=== PATIENT | female | born 1965 | race Caucasian/White ===

== ENCOUNTER 2017-08-20 08:11 | Day surgery (SDC) | payer OTHER ==
[~2017-08-20] VITALS: Ht 165.1 cm; Wt 99.3 kg
[~2017-08-20 08:11] MED LIST: ADVA115A INH; VENTAER IN
[2017-08-20] MEDS ORDERED: NS 1,000 ML IV SCH (08:30)
[2017-08-20] MEDS ORDERED: LIDOCAINE 2% INJ 100 MG/5 ML SDV (FOR ANES.) As Ordered ONE (09:19)
[2017-08-20] MEDS ORDERED: PROPOFOL 200 MG/20 ML VIAL As Ordered ONE ×2 (09:19→09:31)
--- NOTE | 2017-08-20 09:35 | ROOR ---
Patient Name: Alexandra Dillon Procedure Date: 08/20/2017 9:16 AM Date of : 1965 Age: 51 Room: [facility] Gender: Female Note Status: Finalized Procedure: Colonoscopy Indications: Screening for colorectal malignant neoplasm Providers: Sami Cash Jr, MD Referring MD: Trev Lucero MD Requesting Provider: Medicines: Propofol per Anesthesia Complications: No immediate complications. Procedure: Pre-Anesthesia Assessment: - Prior to the procedure, a History and Physical was performed, and patient medications and allergies were reviewed. The patient is competent. The risks and benefits of the procedure and the sedation options and risks were discussed with the patient. All questions were answered and informed consent was obtained. Patient identification and proposed procedure were verified by the physician and the nurse in the pre-procedure area and in the procedure room. Mental Status Examination: alert and oriented. Airway Examination: normal oropharyngeal airway and neck mobility. Respiratory Examination: clear to auscultation. CV Examination: normal. ASA Grade Assessment: II - A patient with mild systemic disease. After reviewing the risks and benefits, the patient was deemed in satisfactory condition to undergo the procedure. The anesthesia plan was to use moderate sedation / analgesia (conscious sedation). Immediately prior to administration of medications, the patient was re-assessed for adequacy to receive sedatives. The heart rate, respiratory rate, oxygen saturations, blood pressure, adequacy of pulmonary ventilation, and response to care were monitored throughout the procedure. The physical status of the patient was re-assessed after the procedure. The Colonoscope was introduced through the anus and advanced to the cecum, identified by appendiceal orifice and ileocecal valve. The colonoscopy was performed without difficulty. The patient tolerated the procedure well. The quality of the bowel preparation was adequate and good. Findings: The rectum, recto-sigmoid colon, descending colon, transverse colon, ascending colon, cecum, appendiceal orifice and ileocecal valve appeared normal. Multiple diverticula were found in the sigmoid colon. Impression: - The rectum, recto-sigmoid colon, descending colon, transverse colon, ascending colon, cecum, appendiceal orifice and ileocecal valve are normal. - Diverticulosis in the sigmoid colon. - No specimens collected. Recommendation: - Discharge patient to home (ambulatory). - Repeat colonoscopy in 10 years for screening purposes. Sami Cash MD Sami Cash Jr, MD 08/20/2017 9:34:40 AM This report has been signed electronically. Number of Addenda: 0 Note Initiated On: 08/20/2017 9:16 AM Estimated Blood Loss: Estimated blood loss: none.
[2017-08-20 09:55] VITALS: BP 162/88
== END 2017-08-20 10:03 | disposition home or self-care (01) ==
LOC: M OPP 08:11
PROVIDERS: ATTEND Surgery
DX: Z12.11 Encounter for screening for malignant neoplasm of colon (principal); K57.30 Diverticulosis of large intestine without perforation or abscess without bleeding; J45.909 Unspecified asthma, uncomplicated; R06.02 Shortness of breath; Z78.0 Asymptomatic menopausal state; R06.83 Snoring; E66.9 Obesity, unspecified; Z79.899 Other long term (current) drug therapy; Z80.0 Family history of malignant neoplasm of digestive organs; Z80.3 Family history of malignant neoplasm of breast

== ENCOUNTER → 2018-02-23 | Outpatient (CLI) | payer OTHER | LOC: M WUC 09:44 | DX: S83.411A Sprain of medial collateral ligament of right knee, initial encounter (principal); Y92.89 Other specified places as the place of occurrence of the external cause; Y93.9 Activity, unspecified; Y99.9 Unspecified external cause status; X58.XXXA Exposure to other specified factors, initial encounter | CPT/HCPCS: 73564 ==

== ENCOUNTER → 2018-04-13 | Outpatient (CLI) | payer OTHER | LOC: M SMT 14:57 | DX: J45.40 Moderate persistent asthma, uncomplicated (principal) | CPT/HCPCS: 71046 ==

== ENCOUNTER → 2018-04-30 | Outpatient (CLI) | payer OTHER | LOC: M SLEEP HO 10:53 | DX: G47.30 Sleep apnea, unspecified (principal) | CPT/HCPCS: G0399 ==

== ENCOUNTER → 2018-12-31 | Outpatient (REF) | payer OTHER | LOC: M LAB REF 13:20 | PROVIDERS: ATTEND Physician Assistant | DX: R30.0 Dysuria (principal) ==

== ENCOUNTER → 2019-03-31 | Outpatient (CLI) | payer OTHER ==
--- NOTE | 2019-04-01 08:48 | REP ---
Clinical: Left lower extremity pain and swelling . Technique: Schmitz scale and color Doppler evaluation using linear high frequency transducer. Findings: Ultrasound examination of the left lower extremity deep venous structures from the common femoral vein to the popliteal vein demonstrates normal compressibility flow and wave patterns in response to respiration and augmentation. There is no evidence for deep venous thrombosis. Impression: No evidence for deep venous thrombosis. Electronically Signed by Srinivas Bernal MD 03/31/2019 03:20 P
== END ==
LOC: M RAD 14:38
PROVIDERS: ATTEND Physician Assistant
DX: M25.562 Pain in left knee (principal)

== ENCOUNTER → 2020-01-27 | Outpatient (CLI) | payer OTHER ==
--- NOTE | 2020-01-28 07:55 | REP ---
ULTRASOUND RIGHT BREAST: Real-time sonographic evaluation of the right breast performed with special attention made to the upper outer quadrant where a suspected venous anomaly or nodule is seen on the prior MRI of the breast 12/21/2019 at [facility]. In the region of 9 to 10-o'clock position, there is an oval hypoechoic nodule measuring 8 x 5 x 8 mm. This corresponds to the abnormality seen on the MRI. Adjacent blood vessels are seen. This appears to represent a solid nodule and should be biopsied. IMPRESSION: ACR 4 suspicious. At the site of the enhancing nodular area in the upper outer quadrant of the right breast, there is a solid nodule by ultrasound which is hypoechoic and measures 8 mm in maximum diameter. Recommend ultrasound guided biopsy. Electronically Signed by Shawn Schmitz MD 01/28/2020 09:48 A
== END ==
LOC: M RAD 13:58
PROVIDERS: ATTEND Family Medicine
DX: N63.10 Unspecified lump in the right breast, unspecified quadrant (principal)

== ENCOUNTER → 2020-03-01 | Outpatient (CLI) | payer OTHER ==
[2020-03-01 12:29] VITALS: BP 144/74
--- NOTE | 2020-03-01 12:31 | REP ---
DIGITAL DIAGNOSTIC UNILATERAL RIGHT BREAST MAMMOGRAPHY: Two views. HISTORY: Marker clip placement views. The patient status post ultrasound-guided needle biopsy procedure and clip placement. Comparison mammography April 12, 2019. FINDINGS: The needle biopsy marker clip is seen in the right breast upper outer quadrant at the site where prior mammography showed a small nodular opacity. No microcalcification is seen. No evidence hematoma. IMPRESSION: Marker clip in place upper outer quadrant right breast. This mammogram was interpreted with the aid of an FDA-approved computer-aided detection system. This patient's estimated Tyrer-Cuzick lifetime risk assessment for breast cancer is 28.5 %. Enhanced screening in the form of annual bilateral breast MRI scanning is warranted. Bilateral breast MRI scanning is recommended annually.
--- NOTE | 2020-03-02 09:40 | REP ---
ULTRASOUND-GUIDED RIGHT BREAST BIOPSY: This procedure was performed by STARR Perez, under the direct supervision of Dr. Florez. The risks and benefits of the procedure were explained to the patient and informed consent was obtained. Directly prior to the start of the procedure, a formal time-out was completed. The right breast mass was localized using ultrasound guidance. The skin was prepped and draped in a sterile fashion. Approximately 20 mL of buffered lidocaine was used as a local anesthetic. Using ultrasound guidance a 14-gauge BARD MARQUEE biopsy system was inserted and five core biopsy specimens were obtained. A marker clip was placed at the biopsy site. The patient tolerated the procedure well and there were no immediate complications. After the appropriate monitored convalescence the patient was discharged from the department.
== END ==
LOC: M WHCPRO 08:42
PROVIDERS: ATTEND Surgery
DX: N60.11 Diffuse cystic mastopathy of right breast (principal)

== ENCOUNTER → 2020-04-16 | Outpatient (CLI) | payer OTHER ==
--- NOTE | 2020-04-16 09:27 | REPMRS ---
Patient History The patient states she had a clinical breast exam in February 2020. Patient is postmenopausal and is nulliparous. Family history of breast cancer at age 60 in mother, breast cancer at age 50 in sister. US Guided Breast Biopsy. of the right breast, March 01, 2020. Took hormonal contraceptives for 25 years. 3D TOMOSYNTHESIS WAS PERFORMED. VOLPARA DENSITY B. Digital Woman Screen Mammo: April 16, 2020 - Exam #: [id number] Bilateral CC and MLO view(s) were taken. Technologist: Pura Lopez, Technologist Prior study comparison: March 01, 2020, right breast diagnostic unilateral mammo performed at [facility]. November 03, 2013, bilateral digital mammo screening bilat, performed at [facility]. FINDINGS: There are scattered fibroglandular densities. There has been no change in the appearance of the mammogram from the prior studies. There is a mild amount of residual fibroglandular tissue which is fairly symmetric. There is no interval development of dominant mass, architectural distortion, or clustered microcalcification suggestive of malignancy. Assessment: BI-RADS/ACR category 1 mammogram. Negative Mammogram. Recommendation Routine screening mammogram in 1 year (for women over age 40). This mammogram was interpreted with the aid of an FDA-approved computer-aided dectection system. THE LIFETIME RISK OF BREAST CANCER IS 29.9%, THEREFORE SUPPLEMENTAL SCREENING MRI OF THE BREASTS IS RECOMMENDED IN 6 MONTHS. Electronically Signed By: Shawn Schmitz MD 04/16/20 0926
== END ==
LOC: M WHC 08:06
PROVIDERS: ATTEND Surgery
DX: Z91.89 Other specified personal risk factors, not elsewhere classified (principal); Z80.3 Family history of malignant neoplasm of breast

== ENCOUNTER → 2020-09-06 | Outpatient (CLI) | payer OTHER ==
--- NOTE | 2020-09-06 16:01 | REP ---
INDICATION: D23.9/Z91.89/N60.99 APOCRINE ADENOMA/HIGH RISK/DUCT HYPERPLA. COMPARISON: Comparison sonography is from January 27, 2020. Patient status post needle biopsy for 8 mm nodule in the right breast at 9 o'clock. Comparison mammography April 16, 2020.. TECHNIQUE: Focused right breast sonogram. FINDINGS: Targeted right breast sonography demonstrates a needle biopsy marker clip surrounded by hypoechoic tissue and or HydroMARK hydrophilic material. The lesion does not appear to have progressed and apart from the HydroMARK material, appears to have decreased in size. The clip is immediately adjacent. No other significant finding. IMPRESSION: Regional target appears smaller. It is immediately adjacent to the HydroMARK clip marker device. BI-RADS category 2 benign findings. <Electronically signed by Kingsley Florez > 09/06/20 [id number]
== END ==
LOC: M WHC 10:51
PROVIDERS: ATTEND Surgery
DX: D23.9 Other benign neoplasm of skin, unspecified (principal); N60.99 Unspecified benign mammary dysplasia of unspecified breast; Z91.89 Other specified personal risk factors, not elsewhere classified

== ENCOUNTER → 2020-12-31 | Outpatient (CLI) | payer OTHER ==
[~2020-12-31] MED LIST changes: +PROHANCE 279.3MG/ML 15ML VIAL As Ordered ONE; +PROHANCE 279.3MG/ML 5ML VIAL As Ordered ONE
--- NOTE | 2020-12-31 14:25 | REP ---
INDICATION: HIGH RISK BREAST CA FAM H/O. COMPARISON: Comparison breast MRI study is from December 21, 2019. Comparison sonography right breast September 06, 2020 and January 27 2020. Patient is status post benign needle biopsy right breast. TECHNIQUE: Three Livia MRI imaging was performed with a dedicated breast coil. Axial, coronal, and sagittal T1 and T2 weighted scans were obtained with and without fat saturation in the usual fashion. The study includes dynamically acquired post gadolinium-enhanced imaging with image subtraction. Maximum intensity projection and multi planar reformation imaging is included as well. This study is interpreted with the aid of Black HouseD, an FDA approved computer aided detection (CAD) software program, on a dedicated breast MRI workstation. The gadolinium enhancement dose is 20 mL of intravenous ProHance. FINDINGS: There is a mild amount of fibroglandular tissue bilaterally corresponding with the mammographic pattern. There is minimal background parenchymal enhancement. There is no evidence of axillary lymphadenopathy or significant breast cystic change. High-resolution pre and post-contrast T1 and T2 weighted scans show no suspicious morphologic abnormality in either breast. Dynamically acquired sequential postcontrast images show no suspicious area of enhancement and washout kinetics in either breast to suggest malignancy. Subtraction images show no additional abnormality. The previously noted enhancing nodule in the right mid breast again seen with a needle biopsy marker clip adjacent. This is unchanged otherwise. There is benign pattern contrast enhancement in the nodule. No new nodule or breast mass is observed. IMPRESSION: BI-RADS category 2 benign bilateral breast MRI findings. Repeat screening bilateral breast MRI study recommended in 1 year. <Electronically signed by Kingsley Florez > 12/31/20 [id number]
== END ==
LOC: M RAD 10:37
PROVIDERS: ATTEND Surgery
DX: Z15.01 Genetic susceptibility to malignant neoplasm of breast (principal); Z80.3 Family history of malignant neoplasm of breast
CPT/HCPCS: A9576; C8908

== ENCOUNTER → 2021-01-16 | Outpatient (REF) | payer OTHER, MEDICAID ==
[~2021-01-16] MED LIST changes: -PROHANCE 279.3MG/ML 15ML VIAL As Ordered ONE; -PROHANCE 279.3MG/ML 5ML VIAL As Ordered ONE
== END ==
LOC: M SFHCWAGY 15:02
PROVIDERS: ATTEND Advanced Practice Midwife
DX: Z12.4 Encounter for screening for malignant neoplasm of cervix (principal)

== ENCOUNTER → 2021-04-22 | Outpatient (CLI) | payer OTHER ==
--- NOTE | 2021-04-22 09:33 | REPMRS ---
Patient History The patient states she had a clinical breast exam in November 2020. Family history of breast cancer at age 60 in mother, breast cancer at age 50 in sister. Benign US guided breast biopsy. of the right breast, March 01, 2020. Took hormonal contraceptives for 25 years. No breast compliants today, pt stated that she has occasional tenderness at and around the site of her right breast biopsy. Moderna vaccine 01/29/21 left arm. 02/26/21 left arm. 15-20 lb intentional weight loss. Patient has signed MRS History Sheet. Digital Woman Screen Mammo: April 22, 2021 - Exam #: [id number] Bilateral CC and MLO view(s) were taken. Technologist: RT Kristy Prior study comparison: April 16, 2020, bilateral digital woman screen mammo performed at [facility] [place]. March 01, 2020, right breast diagnostic unilateral mammo performed at [facility]. April 12, 2019, bilateral digital mammo screening bilat, performed at [facility]. May 20, 2017, bilateral digital woman screen mammo, performed at [facility]. FINDINGS: There are scattered fibroglandular densities. The Volpara volumetric breast density category is:B. There is a needle biopsy marker clip noted in the right breast. There has been no change in the appearance of the mammogram from the prior studies. There is a mild amount of scattered fibroglandular density which is fairly symmetric. There is no interval development of dominant mass, architectural distortion, or grouped microcalcification suggestive of malignancy. 3-D tomosynthesis shows no additional findings. Assessment: BI-RADS/ACR category 2 mammogram. Benign Findings. Recommendation Breast MRI of both breasts in 6 months. Routine screening mammogram of both breasts in 1 year (for women over age 40). This patient's [facility] Lifetime Breast Cancer Risk is estimated at 29.3 %. Patients whose estimated lifetime breast cancer risk assessment is greater than 20% merit annual screening breast MRI scanning in addition to annual mammography. This mammogram was interpreted with the aid of an FDA-approved computer-aided dectection system. Electronically Signed By: Kingsley Florez MD 04/22/21 0932
== END ==
LOC: M WHC 07:57
PROVIDERS: ATTEND Surgery
DX: Z12.31 Encounter for screening mammogram for malignant neoplasm of breast (principal)

== ENCOUNTER → 2022-01-02 | Outpatient (CLI) | payer OTHER ==
[~2022-01-02] MED LIST changes: +PROHANCE 279.3MG/ML 15ML VIAL As Ordered ONE; +PROHANCE 279.3MG/ML 5ML VIAL As Ordered ONE
== END ==
LOC: M RAD 10:09
PROVIDERS: ATTEND Nurse Practitioner Women's Health
DX: N60.99 Unspecified benign mammary dysplasia of unspecified breast (principal); Z91.89 Other specified personal risk factors, not elsewhere classified; Z80.3 Family history of malignant neoplasm of breast
CPT/HCPCS: 77049; A9576

== ENCOUNTER 2022-03-09 10:00 | Emergency (ER) | payer MEDICAID, OTHER ==
[~2022-03-09] VITALS: Ht 165.1 cm; Wt 108.4 kg
[~2022-03-09 10:00] MED LIST changes: -PROHANCE 279.3MG/ML 15ML VIAL As Ordered ONE; -PROHANCE 279.3MG/ML 5ML VIAL As Ordered ONE
[2022-03-09] MEDS ORDERED: BENZOCAINE 20% GEL 9GM TUBE (ANBESOL MAX STRENGTH) TOP ONE (10:20)
[2022-03-09] MEDS ORDERED: ACETAMINOPHEN 500 MG TAB PO ONE (10:20)
[2022-03-09] MEDS ORDERED: KETOROLAC 30 MG/ML 1ML VIAL IM ONE (10:20)
[2022-03-09] MEDS ORDERED: NORCO 5/325MG TABLET (HOME DOSE PACK) PO ONE (11:15)
[2022-03-09 11:22] VITALS: BP 171/98
== END 2022-03-09 11:24 | disposition home or self-care (01) ==
LOC: M ED 10:00
DX: K08.89 Other specified disorders of teeth and supporting structures (principal); J45.909 Unspecified asthma, uncomplicated; Z79.51 Long term (current) use of inhaled steroids
CPT/HCPCS: 96372; 99283; J1885

== ENCOUNTER → 2022-09-03 | Outpatient (CLI) | payer OTHER, MEDICAID | LOC: M PLAIMG 08:58 | PROVIDERS: ATTEND Internal Medicine Pulmonary Disease | DX: J45.40 Moderate persistent asthma, uncomplicated (principal) ==

== ENCOUNTER → 2023-01-09 | Outpatient (CLI) | payer OTHER ==
[~2023-01-09] MED LIST changes: +PROHANCE 279.3MG/ML 15ML VIAL ONE; +PROHANCE 279.3MG/ML 5ML VIAL ONE
== END ==
LOC: M PLAIMG 09:33
PROVIDERS: ATTEND Nurse Practitioner Women's Health
DX: Z91.89 Other specified personal risk factors, not elsewhere classified (principal); Z80.3 Family history of malignant neoplasm of breast; Z12.39 Encounter for other screening for malignant neoplasm of breast
CPT/HCPCS: 77049; A9576

== ENCOUNTER → 2023-02-25 | Outpatient (CLI) | payer OTHER ==
[~2023-02-25] MED LIST changes: +ISOVUE-370 76% 100ML VIAL As Ordered ONE; -PROHANCE 279.3MG/ML 15ML VIAL ONE; -PROHANCE 279.3MG/ML 5ML VIAL ONE
== END ==
LOC: M RAD 14:40
PROVIDERS: ATTEND Otolaryngology
DX: R49.0 Dysphonia (principal)
CPT/HCPCS: 70491; Q9967

== ENCOUNTER → 2023-03-27 | Outpatient (CLI) | payer OTHER ==
[~2023-03-27] MED LIST changes: -ISOVUE-370 76% 100ML VIAL As Ordered ONE
== END ==
LOC: M EKG 14:43
PROVIDERS: ATTEND Anesthesiology
DX: Z01.810 Encounter for preprocedural cardiovascular examination (principal)

== ENCOUNTER 2023-04-09 11:41 | Day surgery (SDC) | payer OTHER ==
[~2023-04-09] VITALS: Ht 165.1 cm; Wt 103.4 kg
[2023-04-09] MEDS ORDERED: LR 1,000 ML IV SCH ×2 (12:50→15:20)
[2023-04-09] MEDS ORDERED: METHYLENE BLUE 0.5% (5MG/ML) 10 ML AMP (PROVAYBLUE) As Ordered ONE (14:13)
[2023-04-09] MEDS ORDERED: LIDOCAINE W/EPINEPHRINE 1% 20ML VIAL As Ordered ONE (14:13)
[2023-04-09] MEDS ORDERED: OXYMETAZOLINE 0.05% NASAL SPRAY (AFRIN) As Ordered ONE (14:14)
[2023-04-09] MEDS ORDERED: fentaNYL 100 MCG/2 ML INJECTION As Ordered ONE (14:16)
[2023-04-09] MEDS ORDERED: propofoL 200 MG/20 ML VIAL As Ordered ONE ×2 (14:16→14:55)
[2023-04-09] MEDS ORDERED: MIDAZOLAM INJ 2MG/2ML VIAL As Ordered ONE (14:16)
[2023-04-09] MEDS ORDERED: ONDANSETRON 4MG 2ML VIAL As Ordered ONE (14:17)
[2023-04-09] MEDS ORDERED: ROCURONIUM BROMIDE 50MG/5ML VIAL As Ordered ONE ×2 (14:17→14:55)
[2023-04-09] MEDS ORDERED: LIDOCAINE 2% 100MG/5ML SDV (FOR ANES.) As Ordered ONE (14:19)
[2023-04-09] MEDS ORDERED: SUGAMMADEX SODIUM 500 MG/5 ML VIAL (BRIDION) As Ordered ONE (14:19)
[2023-04-09] MEDS ORDERED: ACETAMINOPHEN 1000MG 100ML IV BAG As Ordered ONE (14:20)
[2023-04-09] MEDS ORDERED: HYDROmorphone HCL 2MG/ML 1ML VIAL As Ordered ONE (14:56)
[2023-04-09] MEDS ORDERED: GLYCOPYRROLATE INJ 0.2 MG/ML 2 ML VIAL As Ordered ONE (14:57)
[2023-04-09] MEDS ORDERED: fentaNYL 100 MCG/2 ML INJECTION IV PRN (15:20)
[2023-04-09] MEDS ORDERED: oxyCODONE 5MG TAB PO PRN (15:20)
[2023-04-09] MEDS ORDERED: ONDANSETRON 4MG 2ML VIAL IV PRN (15:20)
[2023-04-09] MEDS ORDERED: HYDROMORPHONE HCL 0.5 MG/ 0.5 ML SYRINGE IV PRN (15:20)
[2023-04-09 17:00] VITALS: BP 131/79; TEMP 97.5; O2SAT 99
== END 2023-04-09 18:11 | disposition home or self-care (01) ==
LOC: M SDC 11:41
PROVIDERS: ATTEND Otolaryngology
DX: K13.21 Leukoplakia of oral mucosa, including tongue (principal); J45.909 Unspecified asthma, uncomplicated; G47.33 Obstructive sleep apnea (adult) (pediatric); Z79.51 Long term (current) use of inhaled steroids
CPT/HCPCS: 31536; 88305; J0131; J1100; J1170; J2250; J2405; J3010; Q9968

== ENCOUNTER → 2023-07-08 | Outpatient (CLI) | payer OTHER | LOC: M WHC 08:40 | PROVIDERS: ATTEND Nurse Practitioner Women's Health | DX: Z12.31 Encounter for screening mammogram for malignant neoplasm of breast (principal); Z91.89 Other specified personal risk factors, not elsewhere classified; Z80.3 Family history of malignant neoplasm of breast ==

== ENCOUNTER → 2024-01-21 | Outpatient (CLI) | payer OTHER | LOC: M PLAIMG 09:05 | PROVIDERS: ATTEND Internal Medicine Pulmonary Disease | DX: J45.40 Moderate persistent asthma, uncomplicated (principal) ==

== ENCOUNTER 2024-01-31 10:55 | Emergency (ER) | payer OTHER ==
[~2024-01-31] VITALS: Ht 165.1 cm; Wt 104.1 kg
[2024-01-31] MEDS ORDERED: BENZ150C5 PO (12:57)
[2024-01-31 13:04] VITALS: BP 146/78; TEMP 99.2; O2SAT 96
== END 2024-01-31 13:05 | disposition home or self-care (01) ==
LOC: M ED 10:55
DX: J06.9 Acute upper respiratory infection, unspecified (principal); R05.3 Chronic cough; J45.909 Unspecified asthma, uncomplicated; G47.33 Obstructive sleep apnea (adult) (pediatric); F10.10 Alcohol abuse, uncomplicated; Z79.52 Long term (current) use of systemic steroids; Z79.811 Long term (current) use of aromatase inhibitors; Z79.899 Other long term (current) drug therapy

== ENCOUNTER → 2024-08-22 | Outpatient (CLI) | payer OTHER ==
[~2024-08-22] MED LIST changes: +BENZ150C5 PO
== END ==
LOC: M WHC 07:39
PROVIDERS: ATTEND Family Medicine
DX: Z12.31 Encounter for screening mammogram for malignant neoplasm of breast (principal); Z80.3 Family history of malignant neoplasm of breast

== ENCOUNTER → 2025-06-13 | Outpatient (CLI) | payer OTHER ==
[~2025-06-13] MED LIST changes: +E-Z-GAS II EFFERVESCENT PACKET (SODIUM BICARB./CITRIC ACID/SIMETHICONE) As Ordered ONE; +E-Z-HD 98% w/w 340 GM SUSP BTL As Ordered ONE; +E-Z-PAQUE 96% w/w SUSP 176 GM BTL As Ordered ONE
== END ==
LOC: M RAD 10:12
PROVIDERS: ATTEND Family Medicine
DX: K21.9 Gastro-esophageal reflux disease without esophagitis (principal); R05.9 Cough, unspecified; K44.9 Diaphragmatic hernia without obstruction or gangrene

== ENCOUNTER 2025-08-14 09:16 | Emergency (ER) | payer OTHER ==
[~2025-08-14] VITALS: Ht 165.1 cm; Wt 95.5 kg
[~2025-08-14 09:16] MED LIST changes: -E-Z-GAS II EFFERVESCENT PACKET (SODIUM BICARB./CITRIC ACID/SIMETHICONE) As Ordered ONE; -E-Z-HD 98% w/w 340 GM SUSP BTL As Ordered ONE; -E-Z-PAQUE 96% w/w SUSP 176 GM BTL As Ordered ONE
[2025-08-14] MEDS: CARBAMIDE PEROXIDE 6.5% OTIC SOLN 15 ML AU SCH (10:42)
[2025-08-14 11:13] VITALS: BP 136/73; TEMP 97.3; O2SAT 98
== END 2025-08-14 11:50 | disposition home or self-care (01) ==
LOC: M ED 09:16
DX: H61.23 Impacted cerumen, bilateral (principal); J45.909 Unspecified asthma, uncomplicated; Z79.52 Long term (current) use of systemic steroids; Z79.899 Other long term (current) drug therapy

== ENCOUNTER → 2025-08-24 | Outpatient (CLI) | payer OTHER | LOC: M WHC 12:41 | PROVIDERS: ATTEND Family Medicine | DX: Z12.31 Encounter for screening mammogram for malignant neoplasm of breast (principal); R92.323 Mammographic fibroglandular density, bilateral breasts ==